=== PATIENT | male | born 1965 | race Caucasian/White ===

== ENCOUNTER 2022-03-16 10:59 | Day surgery (SDC) | payer OTHER ==
[~2022-03-16] VITALS: Ht 182.9 cm; Wt 113.4 kg
[2022-03-16] MEDS ORDERED: MIDAZOLAM 2 MG/2 ML VIAL ONE (12:22)
[2022-03-16] MEDS ORDERED: fentaNYL citrate 0.05 MG/ML VIAL ONE (12:22)
[2022-03-16] MEDS ORDERED: LIDOCAINE 2% 100 MG/5 ML UJET TP ONE ×2 (12:23→12:34)
[2022-03-16] MEDS ORDERED: KETOROLAC 60 MG/2 ML VIAL IM ONE (12:40)
== END 2022-03-16 13:40 | disposition home or self-care (01) ==
LOC: MMU 10:59 → MDS 10:59
PROVIDERS: ATTEND Internal Medicine Gastroenterology
DX: Z12.11 Encounter for screening for malignant neoplasm of colon (principal); I10 Essential (primary) hypertension; E78.5 Hyperlipidemia, unspecified; M19.90 Unspecified osteoarthritis, unspecified site; G62.9 Polyneuropathy, unspecified; Z20.822 Contact with and (suspected) exposure to COVID-19; Z79.899 Other long term (current) drug therapy
CPT/HCPCS: J1885; J2250; J3010